=== PATIENT | male | born 1940 | race Caucasian/White ===

== ENCOUNTER 2020-03-17 18:04 | Inpatient (IN) | payer MEDICARE, BC ==
[~2020-03-17] VITALS: Ht 172.7 cm; Wt 79.4 kg
[2020-03-17] MEDS ORDERED: PRED5DRO16 (18:15)
[2020-03-17] MEDS ORDERED: ATOR10TA PO (18:15)
[2020-03-17] MEDS ORDERED: AMLO1TAB12 PO (18:15)
[2020-03-17] MEDS ORDERED: HYDR12.55 PO (18:15)
--- NOTE | 2020-03-17 18:15 | NUR ---
FYI: INFO OF PT'S [facility] [phone] LEE [place] [phone]
--- NOTE | 2020-03-17 18:43 | NUR ---
PT IS IN ROOM #2A. DR LANCE EVALUATED THE PT.
[2020-03-17] MEDS ORDERED: IV NORMAL SALINE 1000 ML BAG IV ONE (19:45)
--- NOTE | 2020-03-17 20:28 | NUR ---
22g place din right AC, blood sample sent to lab
[2020-03-17 20:36] LABS: CARBON DIOXIDE 27 mmol/L (21-32); CHLORIDE 99 mmol/L (98-107); CREATININE 1.7 mg/dL (0.6-1.3); GLUCOSE 125 mg/dL (74-106); POTASSIUM 3.7 mmol/L (3.5-5.1); UREA NITROGEN, BLOOD 30 mg/dL (7-18)
[2020-03-17 20:40] LABS: BASOPHILS % (AUTO) 0.1 % (0.0-2.0); HEMATOCRIT 43.2 % (36.7-47.1); HEMOGLOBIN 14.8 g/dL (12.5-16.3); LYMPHOCYTES # (AUTO) 0.7 K/uL (20.0-40.0); LYMPHOCYTES % (AUTO) 9.6 % (20.5-51.5); MEAN CORPUSCULAR HEMOGLOBIN 33.1 uug (23.8-33.4); MEAN CORPUSCULAR HGB CONC 34 g/dL (32.5-36.3); MEAN CORPUSCULAR VOLUME 96.3 fL (73.0-96.2); MONOCYTES # (AUTO) 0.7 K/uL (2.0-10.0); MONOCYTES % (AUTO) 10.3 % (0.0-11.0); NEUTROPHILS # (AUTO) 5.6 K/uL (1.8-8.9); PLATELET COUNT (AUTO) 210 K/uL (152-348); RED BLOOD CELL COUNT(AUTO) 4.48 MIL/uL (4.06-5.63)
[2020-03-17 20:42] LABS: ALANINE AMINOTRANSFERASE 28 U/L (16-63); ALKALINE PHOSPHATASE 72 U/L (50-136); ASPARTATE AMINOTRANSFERASE 35 U/L (15-37); BILIRUBIN,DIRECT 0.2 mg/dL (0.0-0.2); BILIRUBIN,TOTAL 0.6 mg/dL (0.2-1.0); LIPASE 72 U/L (73-393); TOTAL PROTEIN, SERUM 7.5 g/dL (6.4-8.2)
[2020-03-17] MEDS ORDERED: LORAZEPAM 2 MG/1 ML VIAL ONE (21:11)
[2020-03-17] MEDS ORDERED: LORAZEPAM 2 MG/1 ML VIAL IV ONE (21:15)
--- NOTE | 2020-03-17 22:02 | NUR ---
2 Liters of oxygen given through nasal cannula for oxygen saturation of 89% on room air, continues to remove nasal cannula, unable to obtain urine sample at this time, paatient states he does not have to urinate at this time
[2020-03-17] MEDS: AZITHROMYCIN IV 500 MG in IV DEXTROSE 5% 250 ML IV SCH (22:15)
[2020-03-17] MEDS ORDERED: ACETAMINOPHEN 325 MG TABLET PO PRN (22:15)
[2020-03-17] MEDS ORDERED: ONDANSETRON 4 MG/2 ML VIAL IV PRN (22:15)
[2020-03-17] MEDS ORDERED: HYDROCODONE/APAP 5-325MG TABLET PO PRN (22:15)
[2020-03-17] MEDS ORDERED: MAGNESIUM HYDROXIDE 30 ML LIQUID UDC PO PRN (22:15)
[2020-03-17] MEDS ORDERED: TEMAZEPAM 15 MG CAPSULE PO PRN (22:15)
--- NOTE | 2020-03-17 23:23 | NUR ---
of patient Torri Del Castillo called via landline to give information on the patient's current prescription medications which included: AMPLODIPINE/VALSARTAN 5/160mg DAILY morning PO HYDROCHLOROTHIAZIDE 12.5mg DAILY morning PO ATORVASTATIAN 10mg DAILY Bedtime PO PREDNISONE ACETATE 10mg DAILY morning left eye PREDNISONE ACETATE 10mg DAILY Thursday & Thursday right eye TYLENOL extra strength 500mg PRN The also provided the phone number of [facility] for patient's placement into long-term care when future discharge comes:
[2020-03-17] MEDS ORDERED: PRED10TA23 LEFTEYE (23:43)
[2020-03-17] MEDS ORDERED: PRED5SOL LEFTEYE (23:44)
[2020-03-17] MEDS ORDERED: PRED5SOL RIGHTEYE (23:46)
[2020-03-17] MEDS ORDERED: ACET-2154 PO (23:47)
[2020-03-18] MEDS ORDERED: AZITHROMYCIN 500MG/ D5W 250ML IVPB **ER PYXIS ONLY IV ONE (00:09)
--- NOTE | 2020-03-18 01:40 | NUR ---
Pt. admitted to room 312 covid/tele , under care of [facility] COORDINATOR Ab Belongs List completed and all belongings sent with patient. NO signs of acute distress, patient sent with 4 liters of oxygen via nasal cannula
[2020-03-18 02:21] VITALS: BP 119/68
[2020-03-18 04:20] VITALS: BP 140/50
[2020-03-18] MEDS: PANTOPRAZOLE SODIUM 40 MG TABLET.DR PO SCH (06:39)
[2020-03-18 07:30] LABS: BASOPHILS % (AUTO) 0.2 % (0.0-2.0); HEMATOCRIT 40.3 % (36.7-47.1); LYMPHOCYTES # (AUTO) 1.2 K/uL (20.0-40.0); LYMPHOCYTES % (AUTO) 18.1 % (20.5-51.5); MEAN CORPUSCULAR HEMOGLOBIN 33.4 uug (23.8-33.4); MEAN CORPUSCULAR HGB CONC 35 g/dL (32.5-36.3); MEAN CORPUSCULAR VOLUME 96.4 fL (73.0-96.2); MONOCYTES # (AUTO) 0.8 K/uL (2.0-10.0); MONOCYTES % (AUTO) 12.4 % (0.0-11.0); NEUTROPHILS # (AUTO) 4.4 K/uL (1.8-8.9); NEUTROPHILS % (AUTO) 69.3 % (38.5-71.5); PLATELET COUNT (AUTO) 210 K/uL (152-348); RED BLOOD CELL COUNT(AUTO) 4.18 MIL/uL (4.06-5.63); WHITE BLOOD COUNT (AUTO) 6.4 K/uL (3.6-10.2)
[2020-03-18 08:00] LABS: THYROID STIMULATING HORMONE 0.913 mIU/mL (0.358-3.740)
[2020-03-18 08:24] LABS: ALANINE AMINOTRANSFERASE 30 U/L (16-63); ALKALINE PHOSPHATASE 66 U/L (50-136); ASPARTATE AMINOTRANSFERASE 38 U/L (15-37); BILIRUBIN,TOTAL 0.7 mg/dL (0.2-1.0); CARBON DIOXIDE 27 mmol/L (21-32); CHLORIDE 104 mmol/L (98-107); CHOLESTEROL 137 mg/dL (<200); CREATININE 1.5 mg/dL (0.6-1.3); FERRITIN 473 ng/mL (26-388); GLUCOSE 97 mg/dL (74-106); HDL CHOLESTEROL 43 mg/dL (40-60); MAGNESIUM 2.2 mg/dL (1.8-2.4); POTASSIUM 3.3 mmol/L (3.5-5.1); TOTAL PROTEIN, SERUM 7.3 g/dL (6.4-8.2); TRIGLYCERIDES 118 MG/DL (30-150); UREA NITROGEN, BLOOD 28 mg/dL (7-18)
--- NOTE | 2020-03-18 09:00 | NUR ---
RECEIVED PATIENT IN BED AWAKE WITH CONFUSSION AND DISORIENTATION ALL NEEDS ANTICIPATED AND SATISFIED ON O2 AT 5L/M BY N/C WITH NO SOB AT THIS TIME PATIENT TENDS TO REMOVE THE CANULLA SO REAPPLIED MANY TIMES.TELE MONITORING IS SR WITH NO ECTOPY AT THIS TIME.DIFFICULTY FEEDING PATIENT HE WILL NOT TAKE ENOUGH NUTRITION .ALL NEEDS ANTICIPATED AND SATISFIED TURNED AND REPOSITIONED MADE COMFORTABLE WILL CONTINUE TO OBSERVE
[2020-03-18] MEDS: CHOLECALCIFEROL 1,000 UNIT TABLET PO SCH (09:15)
[2020-03-18] MEDS: DEXAMETHASONE SOD PHOSPHATE 4 MG INJ IV SCH (09:15)
[2020-03-18] MEDS ORDERED: POTASSIUM CHLORIDE 20 MEQ TAB.PRT.SR PO ONE (10:15)
[2020-03-18] MEDS: ENOXAPARIN SODIUM 30 MG/0.3 ML DISP.SYRIN SUBCUT SCH (10:46)
[2020-03-18 12:00] VITALS: BP 97/60
--- NOTE | 2020-03-18 13:49 | NUR ---
PATIENT SEEN AND EXAMINED BY [facility]ER WITH NEW ORDERS AND NOTED
[2020-03-18] MEDS: IV NS 1000 ML 1,000 ML IV PRN (15:00)
[2020-03-18 16:00] VITALS: BP 101/47
[2020-03-18] MEDS: DOCUSATE SODIUM 100 MG CAPSULE PO SCH (20:17)
[2020-03-18] MEDS: ATORVASTATIN 10 MG TABLET PO SCH (20:17)
[2020-03-18 20:19] VITALS: BP 100/48
[2020-03-18] MEDS ORDERED: DOCUSATE SODIUM 250 MG CAPSULE PO SCH (21:00)
--- NOTE | 2020-03-18 21:00 | NUR ---
REMAIN ON COVID ISOLATION AND PRECAUTION ORDERED ALL NEED ANTICIPATED AND SATISFIED MADE COMFORTABLE WILL CONTINUE TO OBSERVE.
[2020-03-18] MEDS: AZITHROMYCIN IV 500 MG in IV DEXTROSE 5% 250 ML IV SCH (22:19)
--- NOTE | 2020-03-19 00:20 | NUR ---
ALL ATTEMPTS TO COLLECT URINE FROM PATIENT INCLUDING PLACING A URINAL IN BETWEEN HIS LEGS FAILED PATIENT WILL PROMPTLY REMOVE THE URINAL WHEN HE WANTS TO URINATE HE IS INCONTINENT OF BLADDER SO PATIENT STRAIGHT FOR URINE SPECIMEN ORDERED AND SENT TO THE LAB.
[2020-03-19 00:46] VITALS: BP 97/42
[2020-03-19 01:49] LABS: *BILIRUBIN,URIN 1+ (NEGATIVE); *BLOOD, URINE NEGATIVE (NEGATIVE); *CLARITY,URINE CLEAR (CLEAR); *COLOR,URINE YELLOW (YELLOW); *KETONES,URINE TRACE (NEGATIVE); LEUKOCYTE ESTERASE ,URINE NEGATIVE (NEGATIVE); NITRITE, URINE NEGATIVE (NEGATIVE); PH,URINE 5.5 (5.0-8.0); UGLUCOSE NEGATIVE (NEGATIVE)
[2020-03-19 01:52] LABS: *CREATININE,URINE 238.5 mg/dL (30-125); *URINE TOTAL PROTEIN RANDOM 39.4 mg/dL (<150/24HR)
[2020-03-19 04:52] VITALS: BP 114/50
[2020-03-19] MEDS: IV NS 1000 ML 1,000 ML IV PRN (04:54)
--- NOTE | 2020-03-19 05:43 | NUR ---
PATIENT IS FIDDLING WITH HIS IV SITE NOTED WITH BLOOD AROUND THE INSERTION SITE REMOVED AND REINSERTED A NEW ONE TO HID RIGHT HAND WRAPPED WITH KIRLIX FOR PROTECTION.CONTINUE ON IVF AND IV ATB ORDERED WITH NO ADVERSE OR ALLERGIC REACTIONS AT THIS TIME.
[2020-03-19] MEDS: PANTOPRAZOLE SODIUM 40 MG TABLET.DR PO SCH (06:11)
--- NOTE | 2020-03-19 06:41 | NUR ---
REMAIN CONFUSED BUT IS ALERT TO SELF ALL NEEDS ANTICIPATED AND SATISFIED NOT IN DISTRESS AT THIS TIME O2 IS NOW AT 3L/M WITH SATS AT 93 PERCENT
[2020-03-19 07:16] LABS: BASOPHILS % (AUTO) 0.1 % (0.0-2.0); HEMATOCRIT 38.6 % (36.7-47.1); HEMOGLOBIN 13.6 g/dL (12.5-16.3); LYMPHOCYTES # (AUTO) 1.1 K/uL (20.0-40.0); LYMPHOCYTES % (AUTO) 16.1 % (20.5-51.5); MEAN CORPUSCULAR HEMOGLOBIN 33.9 uug (23.8-33.4); MEAN CORPUSCULAR HGB CONC 35 g/dL (32.5-36.3); MONOCYTES # (AUTO) 0.9 K/uL (2.0-10.0); MONOCYTES % (AUTO) 14.2 % (0.0-11.0); NEUTROPHILS # (AUTO) 4.6 K/uL (1.8-8.9); NEUTROPHILS % (AUTO) 69.6 % (38.5-71.5); PLATELET COUNT (AUTO) 211 K/uL (152-348); RED BLOOD CELL COUNT(AUTO) 4.02 MIL/uL (4.06-5.63); WHITE BLOOD COUNT (AUTO) 6.7 K/uL (3.6-10.2)
[2020-03-19 07:17] LABS: ALANINE AMINOTRANSFERASE 30 U/L (16-63); ALKALINE PHOSPHATASE 60 U/L (50-136); ASPARTATE AMINOTRANSFERASE 34 U/L (15-37); BILIRUBIN,TOTAL 0.6 mg/dL (0.2-1.0); CARBON DIOXIDE 23 mmol/L (21-32); CHLORIDE 104 mmol/L (98-107); CREATINE KINASE, TOTAL 653 U/L (39-308); CREATININE 1.4 mg/dL (0.6-1.3); GLUCOSE 95 mg/dL (74-106); MAGNESIUM 2.3 mg/dL (1.8-2.4); PHOSPHOROUS 3.1 mg/dL (2.5-4.9); POTASSIUM 3.6 mmol/L (3.5-5.1); TOTAL PROTEIN, SERUM 6.8 g/dL (6.4-8.2); UREA NITROGEN, BLOOD 32 mg/dL (7-18)
[2020-03-19] MEDS: DEXAMETHASONE SOD PHOSPHATE 4 MG INJ IV SCH (09:00)
[2020-03-19] MEDS: CHOLECALCIFEROL 1,000 UNIT TABLET PO SCH (09:53)
[2020-03-19] MEDS: ENOXAPARIN SODIUM 30 MG/0.3 ML DISP.SYRIN SUBCUT SCH (09:56)
[2020-03-19 12:12] VITALS: BP 125/60
[2020-03-19] MEDS ORDERED: DEXAMETHASONE 4 MG TABLET PO SCH (15:00)
[2020-03-19 16:00] VITALS: BP 121/62
--- NOTE | 2020-03-19 18:34 | NUR ---
Patient is disoriented, confused, restless, and agitated. He is alert to his name at times, but is unable to maintain linear or logical conversation. Patient is only able to follow staff commend after multiple attempts at redirection. Received patient with a pulled out his peripheral IV on the right hand due. IV access site noted with dried blood. Site cleansed with water and cleaned. Patient is noted with multiple scabs and skin tears on bilateral hands and arms. This screen writer attempted to reinsert peripheral IV multiple time but failed. MD notified, orders given for Midline placement and mittens to prevent patient from pulling out midline catheter, and a one time order for dexamethasone 6 mg PO due to dexamethasone IV unable to be given. Orders noted and carried out. Patient is receiving 3L oxygen via nasal cannula and tolerating well. Patient provided with juice and water, after 2 sips he becomes angry and attempts to push liquids away and says "that's enough". Patient is unable to participate in education at this time. Bed is in low and locked position with bed alarm on. Call light placed within reach.
[2020-03-19 20:09] VITALS: BP 112/50
[2020-03-19] MEDS: DOCUSATE SODIUM 100 MG CAPSULE PO SCH ×2 (21:00→21:13)
[2020-03-19] MEDS: ATORVASTATIN 10 MG TABLET PO SCH ×2 (21:00→21:13)
--- NOTE | 2020-03-19 21:17 | NUR ---
Patient refused po meds due at this time.
--- NOTE | 2020-03-19 23:40 | NUR ---
Md brittney Gandhi #20 placement done. Patient tolerated procedure well. IVF resumed as ordered.
[2020-03-19] MEDS: AZITHROMYCIN IV 500 MG in IV DEXTROSE 5% 250 ML IV SCH (23:44)
[2020-03-20 00:03] VITALS: BP 120/54
[2020-03-20 05:51] VITALS: BP 151/58
[2020-03-20] MEDS: PANTOPRAZOLE SODIUM 40 MG TABLET.DR PO SCH (06:11)
--- NOTE | 2020-03-20 06:39 | NUR ---
Shift End Report: Slept good. VS stable. Uncooperative at times, trying to get out of bed, refusing due medications. No s/s of respiratory distress. Maintained wrist restraint as ordered for safety. No circulation impairment noted. Continue current plan of care.
--- NOTE | 2020-03-20 07:30 | NUR ---
Received patient in bed, Alert to self and confused. No signs of distress noted. Patient is saturating well on 3L of oxygen. Safety precautions in place. Will continue to monitor.
--- NOTE | 2020-03-20 08:22 | NUR ---
was informed about the fall incident. Oncoming nurse made aware.
[2020-03-20] MEDS: CHOLECALCIFEROL 1,000 UNIT TABLET PO SCH ×2 (09:00→11:00)
[2020-03-20] MEDS: DEXAMETHASONE SOD PHOSPHATE 4 MG INJ IV SCH (11:00)
[2020-03-20] MEDS: ENOXAPARIN SODIUM 30 MG/0.3 ML DISP.SYRIN SUBCUT SCH (11:01)
[2020-03-20] MEDS: IV NS 1000 ML 1,000 ML IV PRN (11:52)
[2020-03-20 12:00] VITALS: BP 133/51
[2020-03-20 13:41] LABS: A/G RATIO 0.9 (0.7-1.7); ALBUMIN 2.9 g/dL (2.9-4.4); ALPHA-1-GLOBULIN 0.3 g/dL (0.0-0.4); ALPHA-2-GLOBULIN 1.2 g/dL (0.4-1.0); GAMMA GLOBULIN 0.7 g/dL (0.4-1.8); GLOBULIN, TOTAL 3.1 g/dL (2.2-3.9); M-SPIKE Not Observed g/dL (Not Observed)
[2020-03-20 16:00] VITALS: BP 127/71
[2020-03-20 17:54] LABS: BASOPHILS % (AUTO) 0.2 % (0.0-2.0); HEMATOCRIT 39.6 % (36.7-47.1); HEMOGLOBIN 13.3 g/dL (12.5-16.3); LYMPHOCYTES # (AUTO) 0.5 K/uL (20.0-40.0); LYMPHOCYTES % (AUTO) 7.1 % (20.5-51.5); MEAN CORPUSCULAR HEMOGLOBIN 32.4 uug (23.8-33.4); MEAN CORPUSCULAR HGB CONC 34 g/dL (32.5-36.3); MEAN CORPUSCULAR VOLUME 96.4 fL (73.0-96.2); MONOCYTES # (AUTO) 0.7 K/uL (2.0-10.0); MONOCYTES % (AUTO) 8.8 % (0.0-11.0); NEUTROPHILS # (AUTO) 6.4 K/uL (1.8-8.9); NEUTROPHILS % (AUTO) 83.9 % (38.5-71.5); PLATELET COUNT (AUTO) 225 K/uL (152-348); WHITE BLOOD COUNT (AUTO) 7.6 K/uL (3.6-10.2)
[2020-03-20 18:05] LABS: CREATININE 1.2 mg/dL (0.6-1.3); POTASSIUM 3.7 mmol/L (3.5-5.1)
[2020-03-20 18:10] LABS: BILIRUBIN,DIRECT 0.3 mg/dL (0.0-0.2); BILIRUBIN,TOTAL 0.7 mg/dL (0.2-1.0); TOTAL PROTEIN, SERUM 6.8 g/dL (6.4-8.2)
[2020-03-20] MEDS ORDERED: REMDESIVIR (CHARGED) 200 MG in IV NORMAL SALINE 210 ML IV ONE (19:30)
[2020-03-20 20:09] VITALS: BP 143/52
[2020-03-20] MEDS: DOCUSATE SODIUM 100 MG CAPSULE PO SCH (21:03)
[2020-03-20] MEDS: ATORVASTATIN 10 MG TABLET PO SCH (21:03)
[2020-03-20] MEDS: LORAZEPAM 2 MG/1 ML VIAL IV PRN (21:08)
[2020-03-20] MEDS: AZITHROMYCIN IV 500 MG in IV DEXTROSE 5% 250 ML IV SCH (21:39)
[2020-03-20] MEDS ORDERED: CEFTRIAXONE 1 G VIAL ONE (22:11)
[2020-03-20] MEDS: CEFTRIAXONE 1 G in IV DEXTROSE 5% 50 ML IV SCH (22:18)
[2020-03-21 00:06] VITALS: BP 101/69
--- NOTE | 2020-03-21 02:38 | NUR ---
midline ordered by dr alaniz due to multiple attempts
[2020-03-21 05:37] VITALS: BP 132/51
[2020-03-21] MEDS: PANTOPRAZOLE SODIUM 40 MG TABLET.DR PO SCH (06:00)
--- NOTE | 2020-03-21 07:30 | NUR ---
Received patient in bed, Alert to self and confused. No signs of distress noted. Patient is saturating well on 3L of oxygen. Patient is on bilateral soft wrist restraints. Safety precautions in place. Will continue to monitor.
[2020-03-21 08:06] LABS: BASOPHILS % (AUTO) 0.1 % (0.0-2.0); HEMATOCRIT 39.9 % (36.7-47.1); HEMOGLOBIN 14.1 g/dL (12.5-16.3); LYMPHOCYTES # (AUTO) 0.7 K/uL (20.0-40.0); MEAN CORPUSCULAR HEMOGLOBIN 33.8 uug (23.8-33.4); MEAN CORPUSCULAR HGB CONC 35 g/dL (32.5-36.3); MEAN CORPUSCULAR VOLUME 95.8 fL (73.0-96.2); MONOCYTES # (AUTO) 0.8 K/uL (2.0-10.0); MONOCYTES % (AUTO) 12.7 % (0.0-11.0); NEUTROPHILS # (AUTO) 4.8 K/uL (1.8-8.9); NEUTROPHILS % (AUTO) 76.2 % (38.5-71.5); PLATELET COUNT (AUTO) 265 K/uL (152-348); RED BLOOD CELL COUNT(AUTO) 4.17 MIL/uL (4.06-5.63); WHITE BLOOD COUNT (AUTO) 6.3 K/uL (3.6-10.2)
[2020-03-21 08:22] LABS: ALANINE AMINOTRANSFERASE 31 U/L (16-63); ALKALINE PHOSPHATASE 60 U/L (50-136); ASPARTATE AMINOTRANSFERASE 30 U/L (15-37); BILIRUBIN,DIRECT 0.2 mg/dL (0.0-0.2); BILIRUBIN,TOTAL 0.5 mg/dL (0.2-1.0); CARBON DIOXIDE 26 mmol/L (21-32); CHLORIDE 105 mmol/L (98-107); CREATININE 1.4 mg/dL (0.6-1.3); FERRITIN 567 ng/mL (26-388); GLUCOSE 114 mg/dL (74-106); LACTATE DEHYDROGENASE 521 U/L (85-227); POTASSIUM 3.7 mmol/L (3.5-5.1); UREA NITROGEN, BLOOD 32 mg/dL (7-18)
[2020-03-21] MEDS: DEXAMETHASONE SOD PHOSPHATE 4 MG INJ IV SCH (09:17)
[2020-03-21] MEDS: ENOXAPARIN SODIUM 30 MG/0.3 ML DISP.SYRIN SUBCUT SCH (09:18)
[2020-03-21] MEDS: CHOLECALCIFEROL 1,000 UNIT TABLET PO SCH (10:11)
[2020-03-21 16:00] VITALS: BP 131/74
--- NOTE | 2020-03-21 18:55 | NUR ---
Patient is resting in bed. Patient is still on bilateral soft wrist restraints. Gave all medications as ordered. No sign of distress noted. Safety precautions are in place. Will endorse to oncoming nurse.
[2020-03-21 20:00] VITALS: BP 108/75
[2020-03-21] MEDS: REMDESIVIR (CHARGED) 100 MG in IV NORMAL SALINE 230 ML IV SCH (20:40)
[2020-03-21] MEDS: DOCUSATE SODIUM 100 MG CAPSULE PO SCH (20:40)
[2020-03-21] MEDS: ATORVASTATIN 10 MG TABLET PO SCH (20:40)
[2020-03-21] MEDS: AZITHROMYCIN IV 500 MG in IV DEXTROSE 5% 250 ML IV SCH (21:50)
[2020-03-21] MEDS: CEFTRIAXONE 1 G in IV DEXTROSE 5% 50 ML IV SCH (22:18)
[2020-03-22] VITALS: BP 114/78
[2020-03-22 04:32] VITALS: BP 114/68
[2020-03-22] MEDS: PANTOPRAZOLE SODIUM 40 MG TABLET.DR PO SCH (06:08)
[2020-03-22] MEDS: IV NS 1000 ML 1,000 ML IV PRN ×2 (06:15→19:00)
[2020-03-22 07:37] LABS: BASOPHILS % (AUTO) 0.1 % (0.0-2.0); HEMATOCRIT 39.8 % (36.7-47.1); HEMOGLOBIN 13.8 g/dL (12.5-16.3); LYMPHOCYTES # (AUTO) 0.9 K/uL (20.0-40.0); LYMPHOCYTES % (AUTO) 9.5 % (20.5-51.5); MEAN CORPUSCULAR HEMOGLOBIN 33.2 uug (23.8-33.4); MEAN CORPUSCULAR HGB CONC 35 g/dL (32.5-36.3); MEAN CORPUSCULAR VOLUME 96.1 fL (73.0-96.2); MONOCYTES # (AUTO) 0.9 K/uL (2.0-10.0); MONOCYTES % (AUTO) 9.2 % (0.0-11.0); NEUTROPHILS # (AUTO) 8.1 K/uL (1.8-8.9); NEUTROPHILS % (AUTO) 81.2 % (38.5-71.5); PLATELET COUNT (AUTO) 282 K/uL (152-348); RED BLOOD CELL COUNT(AUTO) 4.14 MIL/uL (4.06-5.63)
[2020-03-22 07:49] LABS: BILIRUBIN,DIRECT 0.3 mg/dL (0.0-0.2); BILIRUBIN,TOTAL 0.7 mg/dL (0.2-1.0); CREATININE 1.3 mg/dL (0.6-1.3); POTASSIUM 3.5 mmol/L (3.5-5.1); TOTAL PROTEIN, SERUM 6.6 g/dL (6.4-8.2)
[2020-03-22] MEDS: CHOLECALCIFEROL 1,000 UNIT TABLET PO SCH (08:17)
[2020-03-22] MEDS: DEXAMETHASONE SOD PHOSPHATE 4 MG INJ IV SCH (08:17)
[2020-03-22] MEDS: ENOXAPARIN SODIUM 30 MG/0.3 ML DISP.SYRIN SUBCUT SCH (08:41)
[2020-03-22 12:00] VITALS: BP 134/58
[2020-03-22 16:14] VITALS: BP 143/64
--- NOTE | 2020-03-22 19:45 | NUR ---
Patient alert but forgetful, no sob no chest pain. Patient tele monitor sinus rhythm at this time. Patient has multiple attempt of pulling out iv lines, soft wrist restraint in place, check for placement and circulation. Patient has no complain of pain at this time, cont to monitor.
[2020-03-22 20:09] VITALS: BP 135/52
[2020-03-22] MEDS: REMDESIVIR (CHARGED) 100 MG in IV NORMAL SALINE 230 ML IV SCH (20:11)
[2020-03-22] MEDS: DOCUSATE SODIUM 100 MG CAPSULE PO SCH (20:48)
[2020-03-22] MEDS: ATORVASTATIN 10 MG TABLET PO SCH (20:48)
[2020-03-22] MEDS: CEFTRIAXONE 1 G in IV DEXTROSE 5% 50 ML IV SCH (21:05)
[2020-03-23 00:09] VITALS: BP 137/59
[2020-03-23 04:09] VITALS: BP 133/64
[2020-03-23] MEDS: PANTOPRAZOLE SODIUM 40 MG TABLET.DR PO SCH (06:01)
[2020-03-23 06:28] LABS: BASOPHILS % (AUTO) 0.1 % (0.0-2.0); HEMATOCRIT 42.6 % (36.7-47.1); HEMOGLOBIN 14.6 g/dL (12.5-16.3); LYMPHOCYTES # (AUTO) 1.7 K/uL (20.0-40.0); LYMPHOCYTES % (AUTO) 15.9 % (20.5-51.5); MEAN CORPUSCULAR HEMOGLOBIN 33.5 uug (23.8-33.4); MEAN CORPUSCULAR HGB CONC 34 g/dL (32.5-36.3); MEAN CORPUSCULAR VOLUME 97.6 fL (73.0-96.2); MONOCYTES # (AUTO) 1.2 K/uL (2.0-10.0); MONOCYTES % (AUTO) 11.3 % (0.0-11.0); NEUTROPHILS # (AUTO) 7.6 K/uL (1.8-8.9); NEUTROPHILS % (AUTO) 72.7 % (38.5-71.5); PLATELET COUNT (AUTO) 324 K/uL (152-348); RED BLOOD CELL COUNT(AUTO) 4.36 MIL/uL (4.06-5.63); WHITE BLOOD COUNT (AUTO) 10.5 K/uL (3.6-10.2)
[2020-03-23 06:47] LABS: BILIRUBIN,DIRECT 0.3 mg/dL (0.0-0.2); BILIRUBIN,TOTAL 0.8 mg/dL (0.2-1.0); CREATININE 1.3 mg/dL (0.6-1.3); POTASSIUM 3.7 mmol/L (3.5-5.1)
--- NOTE | 2020-03-23 08:00 | NUR ---
Pt received in bed, awake, confused, restless, soft medical restrains are on. Pt is on 3L O2 via nasal canula. pt forgets limitations, attempts to come out of the bed. Pt is disoriented, not aware that he is in a hospital. Pt was compliant with his medications that were crushed and mixed with a pudding. Side rails are up. Pt was resistant with hygiene care.
[2020-03-23] MEDS: ENOXAPARIN SODIUM 30 MG/0.3 ML DISP.SYRIN SUBCUT SCH (08:07)
[2020-03-23] MEDS: CHOLECALCIFEROL 1,000 UNIT TABLET PO SCH (08:08)
[2020-03-23] MEDS: DEXAMETHASONE SOD PHOSPHATE 4 MG INJ IV SCH (08:08)
--- NOTE | 2020-03-23 10:00 | NUR ---
Soft restrains were discontinued
[2020-03-23 12:00] VITALS: BP 153/53
[2020-03-23] MEDS: Z GUARD REMEDY PASTE 57 GM TUBE TOP SCH ×2 (14:45→20:45)
[2020-03-23 15:49] VITALS: BP 142/63
[2020-03-23] MEDS: LORAZEPAM 2 MG/1 ML VIAL IV PRN (16:56)
--- NOTE | 2020-03-23 17:30 | NUR ---
Pt is restless, takes off his nasal canula, agitated, trying to get out of the bed. PRN Ativan 0.5 mg IV was given. Pt is calmer, prn was effective
[2020-03-23] MEDS: IV NS 1000 ML 1,000 ML IV PRN (18:21)
[2020-03-23] MEDS: REMDESIVIR (CHARGED) 100 MG in IV NORMAL SALINE 230 ML IV SCH (19:51)
[2020-03-23 20:19] VITALS: BP 107/77
[2020-03-23] MEDS: DOCUSATE SODIUM 100 MG CAPSULE PO SCH (20:44)
[2020-03-23] MEDS: ATORVASTATIN 10 MG TABLET PO SCH (20:44)
--- NOTE | 2020-03-23 20:55 | NUR ---
Pt tolerated Remdesivir well. post infusion BP 131/56 HR 62. No s/s of n/v, diaphoresis, or shivering. Will continue to monitor for infusion reactions.
[2020-03-23] MEDS: CEFTRIAXONE 1 G in IV DEXTROSE 5% 50 ML IV SCH (21:55)
--- NOTE | 2020-03-23 22:00 | NUR ---
Received patient awake and alert to self. No s/s of acute distress noted at this time. Pt on 3L NC with no s/s of SOB. YANIV midline patent and intact. network and threat support specialist on NSR. Bed alarm on, safety and isolation measures in place.
[2020-03-24 01:43] VITALS: BP 143/58
[2020-03-24] MEDS: PANTOPRAZOLE SODIUM 40 MG TABLET.DR PO SCH (06:15)
[2020-03-24 06:33] VITALS: BP 139/61
[2020-03-24 07:38] LABS: BASOPHILS % (AUTO) 0.2 % (0.0-2.0); HEMATOCRIT 41.2 % (36.7-47.1); HEMOGLOBIN 13.8 g/dL (12.5-16.3); LYMPHOCYTES # (AUTO) 1.5 K/uL (20.0-40.0); LYMPHOCYTES % (AUTO) 12.9 % (20.5-51.5); MEAN CORPUSCULAR HEMOGLOBIN 32.4 uug (23.8-33.4); MEAN CORPUSCULAR HGB CONC 34 g/dL (32.5-36.3); MEAN CORPUSCULAR VOLUME 96.4 fL (73.0-96.2); MONOCYTES % (AUTO) 9.1 % (0.0-11.0); NEUTROPHILS # (AUTO) 8.9 K/uL (1.8-8.9); NEUTROPHILS % (AUTO) 77.8 % (38.5-71.5); PLATELET COUNT (AUTO) 318 K/uL (152-348); RED BLOOD CELL COUNT(AUTO) 4.27 MIL/uL (4.06-5.63); WHITE BLOOD COUNT (AUTO) 11.4 K/uL (3.6-10.2)
[2020-03-24 07:43] LABS: BILIRUBIN,DIRECT 0.3 mg/dL (0.0-0.2); BILIRUBIN,TOTAL 0.7 mg/dL (0.2-1.0); CREATININE 1.2 mg/dL (0.6-1.3); POTASSIUM 3.4 mmol/L (3.5-5.1); TOTAL PROTEIN, SERUM 6.2 g/dL (6.4-8.2)
[2020-03-24 08:00] VITALS: BP 131/43
[2020-03-24] MEDS ORDERED: POTASSIUM CHLORIDE 20 MEQ TAB.PRT.SR PO ONE (08:15)
[2020-03-24] MEDS: DEXAMETHASONE SOD PHOSPHATE 4 MG INJ IV SCH (08:57)
[2020-03-24] MEDS: CHOLECALCIFEROL 1,000 UNIT TABLET PO SCH (08:57)
[2020-03-24] MEDS: ENOXAPARIN SODIUM 30 MG/0.3 ML DISP.SYRIN SUBCUT SCH (08:58)
[2020-03-24] MEDS: Z GUARD REMEDY PASTE 57 GM TUBE TOP SCH (09:50)
[2020-03-24 12:00] VITALS: BP 136/50
[2020-03-24] MEDS: LORAZEPAM 2 MG/1 ML VIAL IV PRN (12:00)
--- NOTE | 2020-03-24 12:00 | NUR ---
PATIENT INCREASINGLY AGITATED AND ANXIOUS, TRIES TO GET OUT OF BED AND REMOVES NASAL CANNULA. ATTEMPTED REORIENTATION, UNABLE TO FOLLOW COMMANDS. GIVEN PRN ATIVAN TO EASE ANXIETY. WILL CONTINUE TO MONITOR.
--- NOTE | 2020-03-24 14:06 | NUR ---
PATIENT SCHEDULED TO BE DISCHARGED. VSS. REPORT GIVEN TO LUIS REID FROM [facility]. REPORT GIVEN TO AMBULANCE PERSONNEL. BELONGINGS GIVEN TO AMBULANCE PERSONNEL FOR TRANSPORT. DISCHARGE PAPERWORK GIVEN TO AMBULANCE PERSONNEL. NO S/S OF SOB NOTED AT THIS TIME. IV MIDLINE REMOVED. NO S/S OF BLEEDING NOTED.
== END 2020-03-24 14:16 | DRG 871 ==
LOC: ER 18:06 → TELE3 03-18 01:33
PROVIDERS: ADMIT Internal Medicine; ATTEND Internal Medicine
PROC: XW033E5 Introduction of Remdesivir Anti-infective into Peripheral Vein, Percutaneous Approach, New Technology Group 5 (ICD-10-PCS; principal; 2020-03-20)
PROC: 05HC33Z Insertion of Infusion Device into Left Basilic Vein, Percutaneous Approach (ICD-10-PCS; 2020-03-21)
PROC: 05HA33Z Insertion of Infusion Device into Left Brachial Vein, Percutaneous Approach (ICD-10-PCS; 2020-03-23)
DX: A41.89 Other specified sepsis (principal); U07.1 COVID-19; N17.0 Acute kidney failure with tubular necrosis; J96.01 Acute respiratory failure with hypoxia; J12.82 Pneumonia due to coronavirus disease 2019; G92 Toxic encephalopathy; D68.59 Other primary thrombophilia; G30.9 Alzheimer's disease, unspecified; F02.80 Dementia in other diseases classified elsewhere, unspecified severity, without behavioral disturbance, psychotic disturbance, mood disturbance, and anxiety; E66.9 Obesity, unspecified; E78.5 Hyperlipidemia, unspecified; E87.6 Hypokalemia; I13.10 Hypertensive heart and chronic kidney disease without heart failure, with stage 1 through stage 4 chronic kidney disease, or unspecified chronic kidney disease; N18.30 Chronic kidney disease, stage 3 unspecified; R73.03 Prediabetes; S00.83XA Contusion of other part of head, initial encounter; S69.92XA Unspecified injury of left wrist, hand and finger(s), initial encounter; W18.30XA Fall on same level, unspecified, initial encounter; W19.XXXA Unspecified fall, initial encounter; Y93.9 Activity, unspecified; Y92.009 Unspecified place in unspecified non-institutional (private) residence as the place of occurrence of the external cause
CPT/HCPCS: 36415; 70030-TC; 70450; 71045; 73110; 83615; 83690; 83735; 83970; 84100; 84155; 84156; 84165; 84300; 84443; 85025; 85610; 85730; 86140; 87086; 93005; A4663; C1758; G0378; J0456; J0696; J1100; J1650; J2060; J7030; J7050; J7060; J8540; U0003